=== PATIENT | female | born 1965 | race Caucasian/White ===

== ENCOUNTER 2016-07-07 02:00 | Emergency (ER) | payer OTHER ==
[~2016-07-07] VITALS: Ht 154.9 cm; Wt 106.6 kg
[~2016-07-07 02:00] MED LIST: ALPR2TAB2 PO; ALPR2TAB5 PO; BUPR200T2 PO; BUPR75TA5 PO; CELE200C PO; CETI10TA22 PO; CLIN-44 PO; CYCL10TA2 PO; ERGO500012 PO; ESCI20TA PO; FURO20TA3 PO; FURO80TA72 PO; HYDR50TA PO; LAMO200T PO; LAMO25TA5 PO; LANS30CA PO; LANS30CA17 PO; LEVO500T8 PO; LORA2TAB PO; MUPI22OI2 TP; OMEG1CAP2 PO; OMEP40CA5 PO; OXYC10TA PO; OXYC60TA7 PO; PHEN37.5 PO; PRAZ2CAP2 PO; PRED20TA PO; PROAIR HFA8.5 GM INH; QUET300T PO; SPIR100T2 PO; SUMA100T4 PO; VIT1TABL2 PO
[2016-07-07] MEDS ORDERED: KETOROLAC TROMETHAMINE 60 MG/2 ML SYRINGE. IM ONE (03:30)
[2016-07-07] MEDS ORDERED: HYDROCODONE/APAP 5/325MG TABLET. PO ONE (03:30)
[2016-07-07] MEDS ORDERED: IBUP-1007 PO (04:28)
[2016-07-07] MEDS ORDERED: TRAM-29 PO (04:28)
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
[2016-07-07 04:44] VITALS: BP 127/81
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
== END 2016-07-07 04:44 | disposition home or self-care (01) ==
LOC: ER 02:00
DX: S09.90XA Unspecified injury of head, initial encounter (principal); M25.561 Pain in right knee; M25.512 Pain in left shoulder; Z88.0 Allergy status to penicillin; Z88.5 Allergy status to narcotic agent; Z88.8 Allergy status to other drugs, medicaments and biological substances; V49.88XA Car occupant (driver) (passenger) injured in other specified transport accidents, initial encounter; Y93.89 Activity, other specified; Y99.8 Other external cause status; Y92.488 Other paved roadways as the place of occurrence of the external cause
CPT/HCPCS: 73030; 73560; 96372; 99284; J1885

== ENCOUNTER → 2016-07-27 | Outpatient (CLI) | payer OTHER ==
[2016-07-07 04:44] VITALS: BP 127/81
[~2016-07-27] MED LIST changes: +IBUP-1007 PO; +TRAM-29 PO
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
== END | disposition home or self-care (01) ==
LOC: KCIC MRI 13:30
PROVIDERS: ATTEND Family Medicine
DX: M19.012 Primary osteoarthritis, left shoulder (principal); M75.102 Unspecified rotator cuff tear or rupture of left shoulder, not specified as traumatic
CPT/HCPCS: 73221

== ENCOUNTER 2016-12-12 17:32 | Emergency (ER) | payer OTHER ==
[~2016-12-12] VITALS: Ht 154.9 cm; Wt 113.4 kg
[~2016-12-12 17:32] MED LIST changes: -CLIN-44 PO; +CLIN150C14 PO; -ERGO500012 PO; +ERGO500027 PO; -ESCI20TA PO; +ESCITALOPRAM OX20 MG PO; -LANS30CA17 PO; +LANS30CA66 PO; -TRAM-29 PO; +TRAM-48 PO
[2016-12-12 18:05] LABS: BILIRUBIN,URINE NEGATIVE (NEG); GLUCOSE,URINE NEGATIVE (NEG); NITRITE,URINE NEGATIVE (NEG); PH,URINE 6.5; PROTEIN,URINE NEGATIVE (NEG-TRACE)
[2016-12-12 18:11] LABS: BACTERIA,URINE FEW /HPF (0-FEW); RBC,URINE 0 /HPF (0-2); SQUAMOUS EPITHELIAL CELL,UR MOD /LPF
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
[2016-12-12 19:30] VITALS: BP 95/70
--- NOTE | 2016-12-13 07:47 | RAD ---
Three-view study of the right knee Indications: Patient fell on concrete steps today. Right knee pain. Findings: No acute fracture or dislocation or osteolytic process is seen. ACL reconstruction is evident. There is moderate degenerative spurring of the medial tibiofemoral joint compartment with mild joint space narrowing. There is mild spurring of the lateral tibiofemoral joint compartment without significant joint space narrowing. There is moderate degenerative spurring of the patellofemoral joint compartment. Small right knee joint effusion is seen. There is a small radiopaque loose body within the intercondylar notch measuring 4 mm. IMPRESSION: Tricompartmental osteoarthritis of the right knee with a small right knee joint effusion. No acute fracture.
--- NOTE | 2016-12-13 07:50 | RAD ---
Two-view study of the thoracolumbar spine History: Fell on concrete steps today. Back pain. Comparison: March 20, 2012. Findings: Old compression fracture of T11 is seen which as been treated with a vertebroplasty. No acute compression fracture is evident. Lumbosacral fusion is evident. No discitis or osteolytic process is seen. Mild scoliotic curvature is seen. IMPRESSION: No acute compression fracture.
== END 2016-12-12 20:00 | disposition home or self-care (01) ==
LOC: ER 17:32
DX: S30.0XXA Contusion of lower back and pelvis, initial encounter (principal); M25.561 Pain in right knee; G89.29 Other chronic pain; E66.9 Obesity, unspecified; Z88.6 Allergy status to analgesic agent; Z88.5 Allergy status to narcotic agent; Z68.42 Body mass index [BMI] 45.0-49.9, adult; Z88.0 Allergy status to penicillin; Z79.891 Long term (current) use of opiate analgesic; Z90.49 Acquired absence of other specified parts of digestive tract; Z90.710 Acquired absence of both cervix and uterus; W10.9XXA Fall (on) (from) unspecified stairs and steps, initial encounter; Y93.89 Activity, other specified; Y92.89 Other specified places as the place of occurrence of the external cause; Y99.8 Other external cause status
CPT/HCPCS: 72080; 73562; 81001; 99285-25

== ENCOUNTER 2017-05-14 18:01 | Inpatient (IN) | payer OTHER ==
[~2017-05-14] VITALS: Ht 154.9 cm; Wt 128.8 kg
--- NOTE | 2017-05-14 18:34 | PHYS DOC ---
Past Medical History Past Medical History: Hepatitis, Other Additional Past Medical Histor: DJD, DID, CELLULITIS, CIRRHOSIS Past Surgical History: Appendectomy, Cholecystectomy, Hysterectomy, Other Additional Past Surgical Histo: hernia repair, metal plates arms/legs, BIOPSY Alcohol Use: None Drug Use: None Adult General Chief Complaint Chief Complaint: SHORTNESS OF BREATH HPI HPI Patient is a 52 year old female who presents with who complaints. She states she has dysuria for last 3-4 days. She also states she has a productive cough over the last 24-48 hours, she states she's had a nonproductive cough for the last 2 weeks. She states she has body aches, she states she had a fever yesterday 104. She is afebrile upon presentation here today. She states that she was given a Z-Sin that did not make her symptoms any better and then she is written for Bactrim which she has not had chance to fill as of yet. Review of Systems Review of Systems Constitutional: Positive for fever, Denies chills [] Eyes: Denies change in visual acuity, redness, or eye pain [] HENT: Denies nasal congestion or sore throat [] Respiratory: Positive for productive cough and shortness of breath [] Cardiovascular: No additional information not addressed in HPI [] GI: Denies abdominal pain, nausea, vomiting, bloody stools or diarrhea [] : Denies dysuria or hematuria [] Musculoskeletal: Denies back pain or joint pain [] Integument: Denies rash or skin lesions [] Neurologic: Denies headache, focal weakness or sensory changes [] Endocrine: Denies polyuria or polydipsia [] All other systems were reviewed and found to be within normal limits, except as documented in this note. Current Medications Current Medications Current Medications Medications (Trade) Dose Ordered Sig/[place] Start Time Stop Time Status Last Admin Dose Admin Albuterol/ Ipratropium (Duoneb) 3 ml 1X ONCE 05/14/17 20:30 05/14/17 20:31 DC 05/14/17 20:33 3 ML Azithromycin 250 ml @ 250 mls/hr 1X ONCE 05/14/17 20:30 05/14/17 21:29 05/14/17 20:18 250 MLS/HR Methylprednisolone Sodium Succinate (SOLU-Medrol 125MG VIAL) 125 mg 1X ONCE 05/14/17 20:30 05/14/17 20:31 DC 05/14/17 20:18 125 MG Morphine Sulfate 4 mg PRN Q15MIN PRN 05/14/17 20:00 05/15/17 19:59 05/14/17 20:04 4 MG Ondansetron HCl (Zofran) 4 mg 1X ONCE 05/14/17 20:00 05/14/17 20:01 DC 05/14/17 20:04 4 MG Potassium Chloride (Klor-Con) 40 meq 1X ONCE 05/14/17 21:00 05/14/17 21:01 Allergies Allergies Allergies Coded Allergies Type Severity Reaction Last Updated Verified Penicillins Allergy Intermediate 03/11/14 Yes aspirin Allergy Intermediate Rash 03/19/16 Yes codeine Allergy Intermediate 03/20/16 Yes Physical Exam Physical Exam Constitutional: Well developed, well nourished, no acute distress, non-toxic appearance. [] HENT: Normocephalic, atraumatic, bilateral external ears normal, oropharynx moist, no oral exudates, nose normal. [] Eyes: PERRLA, EOMI, conjunctiva normal, no discharge. [] Neck: Normal range of motion, no tenderness, supple, no stridor. [] Cardiovascular:Heart rate regular rhythm, no murmur [] Lungs & Thorax: Bilateral breath sounds course with mild expiratory wheezes bilaterally Abdomen: Bowel sounds normal, soft, no tenderness, no masses, no pulsatile masses. [] Skin: Warm, dry, no erythema, no rash. [] Back: No tenderness, no CVA tenderness. [] Extremities: No tenderness, no cyanosis, no clubbing, ROM intact, no edema. [] Neurologic: Alert and oriented X 3, normal motor function, normal sensory function, no focal deficits noted. [] Psychologic: Affect normal, judgement normal, mood normal. [] Current Patient Data Vital Signs Vital Signs Date Time Temp Pulse Resp B/P (MAP) Pulse Ox O2 Delivery O2 Flow Rate FiO2 05/14/17 20:34 96 Room Air 05/14/17 20:04 30 05/14/17 18:33 98.3 86 144/67 (92) 98.3 Lab Values Laboratory Tests Test 05/14/17 18:30 05/14/17 19:30 Urine Collection Type Unknown Urine Color Yellow Urine Clarity Cloudy Urine pH 5.5 Urine Specific [place] 1.025 Urine Protein Negative mg/dL (NEG-TRACE) Urine Glucose (UA) Negative mg/dL (NEG) Urine Ketones (Stick) Negative mg/dL (NEG) Urine Blood Negative (NEG) Urine Nitrite Negative (NEG) Urine Bilirubin Small (NEG) Urine Urobilinogen Dipstick 1.0 mg/dL (0.2 mg/dL) Urine Leukocyte Esterase Small (NEG) Urine RBC Occ /HPF (0-2) Urine WBC Occ /HPF (0-4) Urine Squamous Epithelial Cells None /LPF Urine Amorphous Sediment Present /HPF Urine Bacteria 0 /HPF (0-FEW) Urine Mucus Slight /LPF Urine Opiates Screen Pos (NEG) Urine Methadone Screen Neg (NEG) Urine Barbiturates Neg (NEG) Urine Phencyclidine Screen Neg (NEG) Urine Amphetamine/Methamphetamine Pos (NEG) Urine Benzodiazepines Screen Neg (NEG) Urine Cocaine Screen Neg (NEG) Urine Cannabinoids Screen Pos (NEG) Urine Ethyl Alcohol Neg (NEG) White Blood Count 5.4 x10^3/uL (4.0-11.0) Red Blood Count 4.03 x10^6/uL (3.50-5.40) Hemoglobin 12.0 g/dL (12.0-15.5) Hematocrit 36.0 % (36.0-47.0) Mean Corpuscular Volume 90 fL (79-100) Mean Corpuscular Hemoglobin 30 pg (25-35) Mean Corpuscular Hemoglobin Concent 33 g/dL (31-37) Red Cell Distribution Width 14.2 % (11.5-14.5) Platelet Count 273 x10^3/uL (140-400) Neutrophils (%) (Auto) 57 % (31-73) Lymphocytes (%) (Auto) 28 % (24-48) Monocytes (%) (Auto) 9 % (0-9) Eosinophils (%) (Auto) 5 % (0-3) H Basophils (%) (Auto) 1 % (0-3) Neutrophils # (Auto) 3.1 x10^3uL (1.8-7.7) Lymphocytes # (Auto) 1.5 x10^3/uL (1.0-4.8) Monocytes # (Auto) 0.5 x10^3/uL (0.0-1.1) Eosinophils # (Auto) 0.2 x10^3/uL (0.0-0.7) Basophils # (Auto) 0.0 x10^3/uL (0.0-0.2) Prothrombin Time 12.6 SEC (11.7-14.0) Prothrombin Time INR 1.0 (0.8-1.1) Sodium Level 141 mmol/L (136-145) Potassium Level 3.1 mmol/L (3.5-5.1) L Chloride Level 103 mmol/L (98-107) Carbon Dioxide Level 30 mmol/L (21-32) Anion Gap 8 (6-14) Blood Urea Nitrogen 14 mg/dL (7-20) Creatinine 0.9 mg/dL (0.6-1.0) Estimated GFR (Cockcroft-Gault) 65.5 Glucose Level 106 mg/dL (70-99) H Calcium Level 8.8 mg/dL (8.5-10.1) Magnesium Level 2.2 mg/dL (1.8-2.4) Total Bilirubin 0.3 mg/dL (0.2-1.0) Direct Bilirubin 0.1 mg/dL (0.0-0.2) Aspartate Amino Transferase (AST) 18 U/L (15-37) Alanine Aminotransferase (ALT) 23 U/L (14-59) Alkaline Phosphatase 117 U/L (46-116) H Creatine Kinase 54 U/L (26-192) Creatine Kinase MB (Mass) 13.9 ng/mL (0.0-3.6) H Creatine Kinase MB Relative Index 25.7 % (0-4) H Troponin I Quantitative < 0.017 ng/mL (0.000-0.055) PQ-Oot-Z-Type Natriuretic Peptide 31 pg/mL (0-124) Total Protein 7.6 g/dL (6.4-8.2) Albumin 3.8 g/dL (3.4-5.0) Lipase 64 U/L (73-393) L Laboratory Tests 05/14/17 19:30 Laboratory Tests 05/14/17 19:30 EKG EKG EKG shows sinus rhythm [address] elevations or T-wave inversions concerning, normal axis, QTC 465 ms, as interpreted by me. Radiology/Procedures Radiology/Procedures View chest x-ray did not show any focal consolidations, bony abnormality's, pneumothorax, chest x-ray similar one that was performed on March 18, 2016, as interpreted by me. Impressions: Subjective fevers Productive cough Body aches Course & Med Decision Making Course & Med Decision Making Pertinent Labs and Imaging studies reviewed. (See chart for details) Labs do not show any acute abnormalities addition to EKG chest x-ray. She is wheezing and received azithromycin, Solu-Medrol and breathing treatments. She will require admission secondary to her continued shortness of breath. Patient' s in stable condition this time being admitted to Dr. Barry, patient's agreeable plan. Interim orders have been written. Dragon Disclaimer Dragon Disclaimer This electronic medical record was generated, in whole or in part, using a voice recognition dictation system. Departure Departure Impression: Primary Impression: Obstructive chronic bronchitis with exacerbation Disposition: ADMITTED INPATIENT Admitting Physician: Catalino Barry Condition: STABLE Referrals: JOSE MELO MD (PCP) Additional Instructions: LAWRENCE BENNETT MD May 14, 2017 18:34
[2017-05-14 19:03] LABS: BILIRUBIN,URINE SMALL (NEG); GLUCOSE,URINE NEGATIVE (NEG); NITRITE,URINE NEGATIVE (NEG); PH,URINE 5.5; PROTEIN,URINE NEGATIVE (NEG-TRACE)
[2017-05-14 19:09] LABS: BARBITURATES NEG (NEG); BENZODIAZEPINES NEG (NEG); CANNABINOIDS POS (NEG); COCAINE NEG (NEG); METHADONE NEG (NEG); OPIATES POS (NEG); PHENCYCLIDINE NEG (NEG)
[2017-05-14 19:18] LABS: BACTERIA,URINE 0 /HPF (0-FEW); RBC,URINE OCC /HPF (0-2); WBC,URINE OCC /HPF (0-4)
[2017-05-14 19:45] LABS: BASO % 1 % (0-3); EOS % 5 % (0-3); LYMPH # 1.5 x10^3/uL (1.0-4.8); LYMPH % 28 % (24-48); MEAN CORPUSCULAR HEMOGLOBIN 30 pg (25-35); MEAN CORPUSCULAR HGB CONC 33 g/dL (31-37); MEAN CORPUSCULAR VOLUME 90 fL (79-100); MONO % 9 % (0-9); NEUT % 57 % (31-73); PLATELET COUNT 273 x10^3/uL (140-400); RED BLOOD COUNT 4.03 x10^6/uL (3.50-5.40); RED CELL DISTRIBUTION WIDTH 14.2 % (11.5-14.5); WHITE BLOOD COUNT 5.4 x10^3/uL (4.0-11.0)
[2017-05-14 19:55] LABS: PROTHROMBIN TIME PATIENT 12.6 SEC (11.7-14.0)
[2017-05-14] MEDS ORDERED: ONDANSETRON PF 4 MG/2 ML VIAL. IV ONE (20:00)
[2017-05-14] MEDS ORDERED: MORPHINE SULFATE 4 MG/ML DISP.SYRIN. IV/SQ PRN (20:00)
[2017-05-14 20:11] LABS: CALCIUM 8.8 mg/dL (8.5-10.1); CREATININE 0.9 mg/dL (0.6-1.0); GFR 65.5; POTASSIUM 3.1 mmol/L (3.5-5.1)
[2017-05-14 20:18] LABS: ALBUMIN 3.8 g/dL (3.4-5.0); DIRECT BILIRUBIN 0.1 mg/dL (0.0-0.2); MAGNESIUM 2.2 mg/dL (1.8-2.4); TOTAL BILIRUBIN 0.3 mg/dL (0.2-1.0); TOTAL PROTEIN 7.6 g/dL (6.4-8.2)
[2017-05-14 20:27] LABS: CKMB MASS 13.9 ng/mL (0.0-3.6)
[2017-05-14] MEDS ORDERED: AZITHRMYCN 500MG IVPB FOR OMNI 250 ML IV ONE (20:30)
[2017-05-14] MEDS ORDERED: IPRATRPIUM/ALBUTEROL 0.5/2.5MG 3 ML NEBU. NEB ONE (20:30)
[2017-05-14] MEDS ORDERED: methylPREDNISolone SOD SUCC PF 125 MG/2 ML VIAL. IV ONE (20:30)
[2017-05-14] MEDS ORDERED: POTASSIUM CHLORIDE 20 MEQ TABLET.ER. PO ONE (21:00)
[2017-05-14] MEDS ORDERED: ALBUTEROL SULFATE 2.5 MG/3 ML NEBU. NEB PRN (21:15)
[2017-05-14] MEDS ORDERED: MORPHINE SULFATE 4 MG/ML DISP.SYRIN. IV PRN (21:15)
[2017-05-14 23:45] VITALS: BP 126/75
[2017-05-15] MEDS ORDERED: MUPIROCIN 2 % NASAL OINTMENT 22GM TUBE. NS PRN
[2017-05-15] MEDS ORDERED: NON FORMULARY ITEM (Albuterol Sulfate (Proair Hfa Inhaler) 2 PUFF) INH PRN
[2017-05-15] MEDS ORDERED: TOPI50TA8 PO (00:53)
[2017-05-15] MEDS ORDERED: CYAN10005 PO (00:53)
[2017-05-15] MEDS ORDERED: CITA40TA5 PO (00:53)
[2017-05-15] MEDS ORDERED: LEVO25TA4 PO (00:53)
[2017-05-15] MEDS ORDERED: LAMO200T PO (00:53)
[2017-05-15] MEDS ORDERED: MUPI22OI2 TP (00:53)
[2017-05-15] MEDS: CITALOPRAM 20 MG TABLET. PO SCH ×2 (01:44→09:37)
[2017-05-15] MEDS: TOPIRAMATE 25 MG TABLET. PO SCH ×2 (01:44→09:38)
[2017-05-15] MEDS: lamoTRIgine 100 MG TABLET. PO SCH ×3 (01:44→20:46)
[2017-05-15] MEDS: LORazepam 1 MG TABLET PO SCH ×4 (01:45→20:48)
[2017-05-15] MEDS: CYCLOBENZAPRINE 10 MG TABLET. PO SCH ×4 (01:45→20:48)
[2017-05-15] MEDS: oxyCODONE ER 15 MG TAB.ER.12H PO SCH ×3 (01:45→20:48)
[2017-05-15] MEDS: QUEtiapine 300 MG TAB.ER.24H. PO SCH ×2 (01:45→20:46)
[2017-05-15 03:20] VITALS: BP 115/70
[2017-05-15] MEDS: LEVOTHYROXINE 25 MCG TABLET. PO SCH (05:57)
[2017-05-15 06:06] LABS: BASO % 0 % (0-3); EOS % 0 % (0-3); HEMATOCRIT 36.1 % (36.0-47.0); LYMPH # 0.7 x10^3/uL (1.0-4.8); LYMPH % 13 % (24-48); MEAN CORPUSCULAR HEMOGLOBIN 30 pg (25-35); MEAN CORPUSCULAR HGB CONC 33 g/dL (31-37); MEAN CORPUSCULAR VOLUME 90 fL (79-100); MONO % 2 % (0-9); NEUT % 85 % (31-73); PLATELET COUNT 275 x10^3/uL (140-400); RED CELL DISTRIBUTION WIDTH 13.8 % (11.5-14.5); WHITE BLOOD COUNT 4.9 x10^3/uL (4.0-11.0)
--- NOTE | 2017-05-15 06:14 | EKG ---
[facility] [address] [place] [id number] Test Date: 2017-05-14 Test Time: 18:55:31 Pat Name: LINDA ATKINS Department: Room: [facility] Gender: F [employer]: : 1965 Requested By: LAWRENCE BENNETT Order Number: [id number] Reading MD: Otto Coleman Measurements Intervals Ben Bolt Rate: 80 P: 36 MD: 154 QRS: 31 QRSD: 90 T: 30 QT: 400 QTc: 465 Interpretive Statements SINUS RHYTHM NORMAL ECG Electronically Signed On 05-20-2017 14:41:53 [employer] by Otto Coleman
[2017-05-15 06:20] LABS: CALCIUM 8.9 mg/dL (8.5-10.1); CREATININE 0.9 mg/dL (0.6-1.0); GFR 65.5; POTASSIUM 3.5 mmol/L (3.5-5.1)
[2017-05-15 07:16] VITALS: BP 120/47
--- NOTE | 2017-05-15 08:31 | RAD ---
Portable chest, 05/14/2017: History: Cough Comparison is made to a study from 03/18/2016. The patient is rotated to the right. The heart size and pulmonary vascularity are normal. No pulmonary infiltrate is seen. There is no evidence of pleural fluid. IMPRESSION: No acute cardiopulmonary abnormality is detected.
--- NOTE | 2017-05-15 08:37 | PDOC ---
GENERAL General: see dictated H&P. Problems: VITAL SIGNS Vital Signs: Vital Signs Date Time Temp Pulse Resp B/P (MAP) Pulse Ox O2 Delivery O2 Flow Rate FiO2 05/15/17 07:16 97.6 85 17 120/47 (71) 94 Room Air 97.6 I & O I & O Intake and Output 05/15/17 07:00 Intake Total 930 ml Balance 930 ml Intake Oral 680 ml IV Total 250 ml ALLERGIES Allergies: Allergies Coded Allergies Type Severity Reaction Last Updated Verified Penicillins Allergy Intermediate 03/11/14 Yes aspirin Allergy Intermediate Rash 03/19/16 Yes codeine Allergy Intermediate 03/20/16 Yes MEDS Medications: Current Medications Medications (Trade) Dose Ordered Sig/[place] Start Time Stop Time Status Last Admin Dose Admin Albuterol Sulfate (Ventolin Neb Soln) 2.5 mg PRN Q6HRS PRN 05/15/17 22:00 Albuterol/ Ipratropium (Duoneb) 3 ml 1X ONCE 05/14/17 20:30 05/14/17 20:31 DC 05/14/17 20:33 3 ML Azithromycin 250 ml @ 250 mls/hr 1X ONCE 05/14/17 20:30 05/15/17 01:08 DC 05/14/17 20:18 250 MLS/HR Citalopram Hydrobromide (CeleXA) 40 mg DAILY 05/15/17 01:30 05/15/17 01:44 40 MG Cyanocobalamin (Vitamin B-12) 1,000 mcg WEEKLY 05/21/17 09:00 Cyclobenzaprine HCl (Flexeril) 10 mg TID 05/15/17 02:00 05/15/17 01:45 10 MG Ergocalciferol (Vitamin D2) 50,000 unit QTU 05/21/17 16:00 Lamotrigine (LaMICtal) 200 mg BID 05/15/17 01:15 05/15/17 01:44 200 MG Levothyroxine Sodium (Synthroid) 25 mcg DAILY07 05/15/17 07:00 05/15/17 05:57 25 MCG Lorazepam (Ativan) 2 mg TID 05/15/17 02:00 05/15/17 01:45 2 MG Methylprednisolone Sodium Succinate (SOLU-Medrol 125MG VIAL) 125 mg 1X ONCE 05/14/17 20:30 05/14/17 20:31 DC 05/14/17 20:18 125 MG Morphine Sulfate 4 mg PRN Q4HRS PRN 05/14/17 21:15 05/15/17 21:14 05/15/17 05:57 4 MG Mupirocin (Bactroban) 1 eri TID PRN PRN 05/15/17 00:00 Non-Formulary Medication 200 mg BID 05/15/17 09:00 UNV Ondansetron HCl (Zofran) 4 mg 1X ONCE 05/14/17 20:00 05/14/17 20:01 DC 05/14/17 20:04 4 MG Oxycodone HCl (OxyCONTIN) 60 mg Q12HR 05/15/17 02:00 05/15/17 01:45 60 MG Oxycodone HCl (Roxicodone) 20 mg QID 05/15/17 09:00 Pantoprazole Sodium (Protonix) 40 mg DAILYAC 05/15/17 07:30 Potassium Chloride (Klor-Con) 40 meq 1X ONCE 05/14/17 21:00 05/14/17 21:01 DC Quetiapine Fumarate (SEROquel XR) 300 mg QHS 05/15/17 02:00 05/15/17 01:45 300 MG Sumatriptan Succinate (Imitrex) 100 mg PRN DAILY PRN 05/15/17 00:00 Topiramate (Topamax) 50 mg DAILY 05/15/17 01:15 05/15/17 01:44 50 MG LAB Lab: Laboratory Tests Test 05/14/17 18:30 05/14/17 19:30 05/15/17 04:00 Urine Collection Type Unknown Urine Color Yellow Urine Clarity Cloudy Urine pH 5.5 Urine Specific [place] 1.025 Urine Protein Negative mg/dL (NEG-TRACE) Urine Glucose (UA) Negative mg/dL (NEG) Urine Ketones (Stick) Negative mg/dL (NEG) Urine Blood Negative (NEG) Urine Nitrite Negative (NEG) Urine Bilirubin Small (NEG) Urine Urobilinogen Dipstick 1.0 mg/dL (0.2 mg/dL) Urine Leukocyte Esterase Small (NEG) Urine RBC Occ /HPF (0-2) Urine WBC Occ /HPF (0-4) Urine Squamous Epithelial Cells None /LPF Urine Amorphous Sediment Present /HPF Urine Bacteria 0 /HPF (0-FEW) Urine Mucus Slight /LPF Urine Opiates Screen Pos (NEG) Urine Methadone Screen Neg (NEG) Urine Barbiturates Neg (NEG) Urine Phencyclidine Screen Neg (NEG) Urine Amphetamine/Methamphetamine Pos (NEG) Urine Benzodiazepines Screen Neg (NEG) Urine Cocaine Screen Neg (NEG) Urine Cannabinoids Screen Pos (NEG) Urine Ethyl Alcohol Neg (NEG) White Blood Count 5.4 x10^3/uL (4.0-11.0) 4.9 x10^3/uL (4.0-11.0) Red Blood Count 4.03 x10^6/uL (3.50-5.40) 4.00 x10^6/uL (3.50-5.40) Hemoglobin 12.0 g/dL (12.0-15.5) 12.0 g/dL (12.0-15.5) Hematocrit 36.0 % (36.0-47.0) 36.1 % (36.0-47.0) Mean Corpuscular Volume 90 fL (79-100) 90 fL (79-100) Mean Corpuscular Hemoglobin 30 pg (25-35) 30 pg (25-35) Mean Corpuscular Hemoglobin Concent 33 g/dL (31-37) 33 g/dL (31-37) Red Cell Distribution Width 14.2 % (11.5-14.5) 13.8 % (11.5-14.5) Platelet Count 273 x10^3/uL (140-400) 275 x10^3/uL (140-400) Neutrophils (%) (Auto) 57 % (31-73) 85 % (31-73) Lymphocytes (%) (Auto) 28 % (24-48) 13 % (24-48) Monocytes (%) (Auto) 9 % (0-9) 2 % (0-9) Eosinophils (%) (Auto) 5 % (0-3) 0 % (0-3) Basophils (%) (Auto) 1 % (0-3) 0 % (0-3) Neutrophils # (Auto) 3.1 x10^3uL (1.8-7.7) 4.2 x10^3uL (1.8-7.7) Lymphocytes # (Auto) 1.5 x10^3/uL (1.0-4.8) 0.7 x10^3/uL (1.0-4.8) Monocytes # (Auto) 0.5 x10^3/uL (0.0-1.1) 0.1 x10^3/uL (0.0-1.1) Eosinophils # (Auto) 0.2 x10^3/uL (0.0-0.7) 0.0 x10^3/uL (0.0-0.7) Basophils # (Auto) 0.0 x10^3/uL (0.0-0.2) 0.0 x10^3/uL (0.0-0.2) Prothrombin Time 12.6 SEC (11.7-14.0) Prothromb Time International Ratio 1.0 (0.8-1.1) Sodium Level 141 mmol/L (136-145) 142 mmol/L (136-145) Potassium Level 3.1 mmol/L (3.5-5.1) 3.5 mmol/L (3.5-5.1) Chloride Level 103 mmol/L (98-107) 107 mmol/L (98-107) Carbon Dioxide Level 30 mmol/L (21-32) 27 mmol/L (21-32) Anion Gap 8 (6-14) 8 (6-14) Blood Urea Nitrogen 14 mg/dL (7-20) 14 mg/dL (7-20) Creatinine 0.9 mg/dL (0.6-1.0) 0.9 mg/dL (0.6-1.0) Estimated GFR (Cockcroft-Gault) 65.5 65.5 Glucose Level 106 mg/dL (70-99) 160 mg/dL (70-99) Calcium Level 8.8 mg/dL (8.5-10.1) 8.9 mg/dL (8.5-10.1) Magnesium Level 2.2 mg/dL (1.8-2.4) Total Bilirubin 0.3 mg/dL (0.2-1.0) Direct Bilirubin 0.1 mg/dL (0.0-0.2) Aspartate Amino Transf (AST/SGOT) 18 U/L (15-37) Alanine Aminotransferase (ALT/SGPT) 23 U/L (14-59) Alkaline Phosphatase 117 U/L (46-116) Creatine Kinase 54 U/L (26-192) Creatine Kinase MB (Mass) 13.9 ng/mL (0.0-3.6) Creatine Kinase MB Relative Index 25.7 % (0-4) Troponin I Quantitative < 0.017 ng/mL (0.000-0.055) < 0.017 ng/mL (0.000-0.055) AR-Fbl-X-Type Natriuretic Peptide 31 pg/mL (0-124) Total Protein 7.6 g/dL (6.4-8.2) Albumin 3.8 g/dL (3.4-5.0) Lipase 64 U/L (73-393) GENIE SHAW MD May 15, 2017 08:37
[2017-05-15] MEDS ORDERED: NON FORMULARY ITEM (Lamotrigine 200 MG) PO SCH (09:00)
[2017-05-15] MEDS ORDERED: NON FORMULARY ITEM (Phentermine Hcl 37.5 MG) PO SCH (09:00)
[2017-05-15] MEDS: PANTOPRAZOLE 40 MG TABLET.DR. PO SCH (09:37)
[2017-05-15] MEDS: oxyCODONE IR 5 MG TABLET PO SCH ×4 (09:40→20:47)
[2017-05-15] MEDS ORDERED: IV NORMAL SALINE 1000ML BAG 1,000 ML IV ONE (10:00)
--- NOTE | 2017-05-15 10:31 | HP ---
ADMIT DATE: CHIEF COMPLAINT AND HISTORY OF PRESENT ILLNESS: This 52-year-old white female is known to me from prior hospitalization. The patient presents with 2 weeks shortness of breath and productive cough. She has body aches and chills, reports home fever, had been started on Z-Sin, which did not improve her symptoms by Dr. Nguyen and was written prescription for Bactrim, which she never has filled as of late. She was felt to have an exacerbation of COPD in the Emergency Room and admitted for the same. PAST MEDICAL HISTORY: Remarkable for hepatitis, degenerative joint disease, history of cellulitis, cirrhosis, bipolar disease. PAST SURGICAL HISTORY: She has had a prior appendectomy, cholecystectomy, hysterectomy, hernia repair. MEDICATIONS: Brought with the patient, listed on the computer and have been addressed. ALLERGIES: SHE IS ALLERGIC TO PENICILLIN, CODEINE, AND ASPIRIN. SOCIAL HISTORY: She is nonsmoker, nondrinker. However, currently abuses drugs; according to her, not; but amphetamines and cannabinoids on initial drug screen and are obviously not part of her home medications. FAMILY HISTORY: Noncontributory. REVIEW OF SYSTEMS: As mentioned above. PHYSICAL EXAMINATION: GENERAL: She is a well-developed, well-nourished, obese white female, currently comfortable in bed. VITAL SIGNS: Stable. She is afebrile. O2 sats are good on room air. HEAD, EYES, EARS, NOSE, AND THROAT: Unremarkable. NECK: Supple without adenopathy or thyromegaly. CHEST: Reveals mild expiratory wheezes bilaterally. HEART: Regular rate and rhythm without S3, S4 or murmur. ABDOMEN: Soft, nontender, without hepatosplenomegaly or masses. EXTREMITIES: Without cyanosis, clubbing, edema. NEUROLOGIC: She is intact. IMPRESSION: 1. Exacerbation of chronic obstructive pulmonary disease with likely bronchitis. 2. Other problems listed above. PLAN: The patient has been admitted. IV fluids. Pulmonary toilet, IV antibiotics, IV steroids will be ongoing and the patient will be monitored, managed and treated appropriately. GENIE SHAW MD DR: BOOKER/kadeem JOB#: [id number] / [id number]
[2017-05-15 10:38] VITALS: BP 123/64
[2017-05-15] MEDS: methylPREDNISolone SOD SUCC PF 40 MG/ML VIAL. IV SCH ×3 (11:03→20:48)
[2017-05-15 14:42] VITALS: BP 133/78
[2017-05-15 19:10] VITALS: BP 141/81
[2017-05-15] MEDS ORDERED: ALBUTEROL SULFATE 2.5 MG/3 ML NEBU. NEB PRN (22:00)
[2017-05-15 23:05] VITALS: BP 119/63
[2017-05-16] MEDS: SUMAtriptan SUCCINATE 100 MG TABLET PO PRN (01:16)
[2017-05-16 03:51] VITALS: BP 171/80
[2017-05-16] MEDS: LEVOTHYROXINE 25 MCG TABLET. PO SCH (05:49)
[2017-05-16] MEDS: methylPREDNISolone SOD SUCC PF 40 MG/ML VIAL. IV SCH ×3 (05:49→21:15)
[2017-05-16 07:33] VITALS: BP 135/63
--- NOTE | 2017-05-16 08:30 | PDOC ---
GENERAL General: vss and afebrile. sleeping soundly. still with diffuse expiratory wheezing and will ask for pulmonary opinion. heart regular and abdomen benign. otherwise same. Problems: VITAL SIGNS Vital Signs: Vital Signs Date Time Temp Pulse Resp B/P (MAP) Pulse Ox O2 Delivery O2 Flow Rate FiO2 05/16/17 07:33 98.6 63 18 135/63 (87) 97 Room Air 98.6 I & O I & O Intake and Output 05/16/17 07:00 Intake Total 3150 ml Balance 3150 ml Intake Oral 3150 ml # Voids 7 ALLERGIES Allergies: Allergies Coded Allergies Type Severity Reaction Last Updated Verified Penicillins Allergy Intermediate 03/11/14 Yes aspirin Allergy Intermediate Rash 03/19/16 Yes codeine Allergy Intermediate 03/20/16 Yes MEDS Medications: Current Medications Medications (Trade) Dose Ordered Sig/[place] Start Time Stop Time Status Last Admin Dose Admin Albuterol Sulfate (Ventolin Neb Soln) 2.5 mg PRN Q6HRS PRN 05/15/17 22:00 Albuterol/ Ipratropium (Duoneb) 3 ml 1X ONCE 05/14/17 20:30 05/14/17 20:31 DC 05/14/17 20:33 3 ML Azithromycin 250 ml @ 250 mls/hr 1X ONCE 05/14/17 20:30 05/15/17 01:08 DC 05/14/17 20:18 250 MLS/HR Citalopram Hydrobromide (CeleXA) 40 mg DAILY 05/15/17 01:30 05/15/17 09:37 40 MG Cyanocobalamin (Vitamin B-12) 1,000 mcg WEEKLY 05/21/17 09:00 Cyclobenzaprine HCl (Flexeril) 10 mg TID 05/15/17 02:00 05/15/17 20:48 10 MG Ergocalciferol (Vitamin D2) 50,000 unit QTU 05/21/17 16:00 Lamotrigine (LaMICtal) 200 mg BID 05/15/17 01:15 05/15/17 20:46 200 MG Levofloxacin/ Dextrose 100 ml @ 100 mls/hr Q24H 05/15/17 10:00 05/15/17 11:02 100 MLS/HR Levothyroxine Sodium (Synthroid) 25 mcg DAILY07 05/15/17 07:00 05/16/17 05:49 25 MCG Lorazepam (Ativan) 2 mg TID 05/15/17 02:00 05/15/17 20:48 2 MG Methylprednisolone Sodium Succinate (SOLU-Medrol 40MG VIAL) 40 mg Q8HRS 05/15/17 10:00 05/16/17 05:49 40 MG Methylprednisolone Sodium Succinate (SOLU-Medrol 125MG VIAL) 125 mg 1X ONCE 05/14/17 20:30 05/14/17 20:31 DC 05/14/17 20:18 125 MG Morphine Sulfate 4 mg PRN Q4HRS PRN 05/14/17 21:15 05/15/17 21:14 DC 05/15/17 05:57 4 MG Mupirocin (Bactroban) 1 eri TID PRN PRN 05/15/17 00:00 Non-Formulary Medication 200 mg BID 05/15/17 09:00 UNV Ondansetron HCl (Zofran) 4 mg 1X ONCE 05/14/17 20:00 05/14/17 20:01 DC 05/14/17 20:04 4 MG Oxycodone HCl (OxyCONTIN) 60 mg Q12HR 05/15/17 02:00 05/15/17 20:48 60 MG Oxycodone HCl (Roxicodone) 20 mg QID 05/15/17 09:00 05/15/17 20:47 20 MG Pantoprazole Sodium (Protonix) 40 mg DAILYAC 05/15/17 07:30 05/15/17 09:37 40 MG Potassium Chloride (Klor-Con) 40 meq 1X ONCE 05/14/17 21:00 05/14/17 21:01 DC Quetiapine Fumarate (SEROquel XR) 300 mg QHS 05/15/17 02:00 05/15/17 20:46 300 MG Sodium Chloride 1,000 ml @ 125 mls/hr 1X ONCE 05/15/17 10:00 05/15/17 17:59 DC 05/15/17 09:36 125 MLS/HR Sumatriptan Succinate (Imitrex) 100 mg PRN DAILY PRN 05/15/17 00:00 05/16/17 01:16 100 MG Topiramate (Topamax) 50 mg DAILY 05/15/17 01:15 05/15/17 09:38 50 MG LAB Lab: Laboratory Tests Test 05/15/17 09:08 Troponin I Quantitative < 0.017 ng/mL (0.000-0.055) GENIE SHAW MD May 16, 2017 08:30
[2017-05-16] MEDS: oxyCODONE ER 15 MG TAB.ER.12H PO SCH ×2 (09:29→15:43)
[2017-05-16] MEDS: TOPIRAMATE 25 MG TABLET. PO SCH (09:29)
[2017-05-16] MEDS: oxyCODONE IR 5 MG TABLET PO SCH ×4 (09:29→20:37)
[2017-05-16] MEDS: CITALOPRAM 20 MG TABLET. PO SCH (09:30)
[2017-05-16] MEDS: LORazepam 1 MG TABLET PO SCH ×3 (09:30→20:37)
[2017-05-16] MEDS: lamoTRIgine 100 MG TABLET. PO SCH ×2 (09:30→20:36)
[2017-05-16] MEDS: PANTOPRAZOLE 40 MG TABLET.DR. PO SCH (09:30)
[2017-05-16] MEDS: CYCLOBENZAPRINE 10 MG TABLET. PO SCH ×3 (09:30→20:36)
--- NOTE | 2017-05-16 09:33 | CONS ---
DATE OF CONSULTATION: ATTENDING PHYSICIAN: Dr. Coulter REASON FOR CONSULTATION: Dyspnea. HISTORY OF PRESENT ILLNESS: The patient is a 52-year-old female with underlying COPD. She has smoked all her life. She presented with 2-week history of shortness of breath with some wheezing along with a productive cough. She has some body aches and chills. Reportedly had some fever on and off for the last week. The patient did receive flu vaccine. She had failed outpatient Bactrim, in fact she never filled the prescription. The patient was seen in the Emergency Room and a chest x-ray was performed. It was reported as negative. To my review, there appears to be opacity at the lateral border of the cardiac silhouette which could be pericardial fat. I have been asked to see her for further evaluation. PAST MEDICAL HISTORY: Significant for COPD, unknown FEV1, history of hepatitis, DJD, cirrhosis, and bipolar disease. PAST SURGICAL HISTORY: Appendectomy, cholecystectomy, hysterectomy and hernia repair. MEDICATIONS: All reviewed as listed in the MRAD including IV steroids, antibiotic Levaquin and p.r.n. nebs. REVIEW OF SYSTEMS: Twelve-point system obtained. Pertinent positives discussed in history of present illness, otherwise noncontributory. All systems that were negative were reviewed as well. SOCIAL HISTORY: Smoker all her life. She says she no longer smokes cigarettes. She has history of drug abuse as well. FAMILY HISTORY: Noncontributory to lungs. PHYSICAL EXAMINATION: GENERAL: She is awake, following commands. VITAL SIGNS: Reviewed, stable today. Afebrile. Blood pressure 135/63, pulse ox 97% on room air. EYES: Sclerae nonicteric. NECK: Supple. LUNGS: With faint anterior expiratory wheezes. CARDIOVASCULAR: Regular rate and rhythm. ABDOMEN: Soft, nontender. EXTREMITIES: With no pitting edema. LABORATORY DATA: Reviewed. Urine drug screen was positive for methamphetamine and marijuana along with opiates. Chemistries with a BUN of 14, creatinine 0.9. Her CK was 54. White cell count is 4.9, hemoglobin 12.0 and platelets are 275. IMPRESSION: 1. Dyspnea secondary to acute exacerbation of chronic obstructive pulmonary disease and also probably contributed by substance abuse. 2. Acute purulent bronchitis. No definite consolidation seen on the chest x-ray. 3. Abnormal chest x-ray with possible pericardial fat at the lateral border of the cardiac silhouette. We will obtain noncontrast CT chest. 4. Underlying morbid obesity. Insurance will not cover a sleep study. 5. History of cirrhosis. 6. Bipolar disorder. RECOMMENDATIONS: 1. Continue with present IV steroids. 2. Continue with antibiotics. 3. Sputum for C and S. 4. Add scheduled DuoNeb and p.r.n. albuterol. 5. The patient was counseled regarding substance abuse cessation. 6. Obtain noncontrast CT chest. CORI RASMUSSEN MD DR: JAKUB/kadeem JOB#: [id number] / [id number] JASON
[2017-05-16 10:31] LABS: OBC FLU VALID
--- NOTE | 2017-05-16 10:40 | RAD ---
CT chest without contrast Indication: Shortness of breath. Pulmonary hypertension versus pericardial fat. Technique: CT chest without IV contrast with multi planar reformats. Comparison: Previous study from 2014. Findings: Limited study due to lack of IV contrast. Neck base is clear. No axillary, mediastinal or hilar adenopathy. Heart is normal in size. No pericardial or pleural effusion. Prominent fat is noted in the right cardiophrenic recess. There is mild right pericardial subsegmental atelectasis. The main pulmonary artery is not significantly dilated. There is thickening of the right posterolateral pleura. Minimal scattered patchy opacities are seen in the right middle lobe and right upper lobe, nonspecific may be secondary to subsegmental atelectasis. Visualized noncontrast appearance of the liver, spleen, adrenals, visualized pancreas and kidneys are within normal limits. Status post cholecystectomy. Kyphoplasty changes in the T11 vertebral body. No suspicious bony lesion. Impression: 1. Main pulmonary artery is not dilated to suggest pulmonary arterial hypertension. 2. Right cardiophrenic fat pad and mild pericardiac segmental atelectasis of the adjacent lung. PQRS Compliance Statement: One or more of the following individualized dose reduction techniques were utilized for this examination: 1. Automated exposure control 2. Adjustment of the mA and/or kV according to patient size 3. Use of iterative reconstruction technique
[2017-05-16 11:40] VITALS: BP 145/76
[2017-05-16] MEDS: IPRATRPIUM/ALBUTEROL 0.5/2.5MG 3 ML NEBU. NEB SCH ×3 (11:48→19:20)
[2017-05-16 14:50] VITALS: BP 140/72
[2017-05-16 19:00] VITALS: BP 116/74
[2017-05-16] MEDS: QUEtiapine 300 MG TAB.ER.24H. PO SCH (20:36)
[2017-05-16 23:41] VITALS: BP 116/90
[2017-05-17 03:31] VITALS: BP 111/65
[2017-05-17] MEDS: methylPREDNISolone SOD SUCC PF 40 MG/ML VIAL. IV SCH ×3 (06:11→21:56)
[2017-05-17] MEDS: LEVOTHYROXINE 25 MCG TABLET. PO SCH (06:12)
[2017-05-17 07:00] VITALS: BP 145/68
[2017-05-17] MEDS: IPRATRPIUM/ALBUTEROL 0.5/2.5MG 3 ML NEBU. NEB SCH ×4 (07:36→19:35)
--- NOTE | 2017-05-17 08:25 | PDOC ---
GENERAL General: vss and afebrile. awake and alert this am. less wheezy this am but still harsh cough. heart regular and abdomen benign. ct chest without acute pathology. continue present therapy. Problems: VITAL SIGNS Vital Signs: Vital Signs Date Time Temp Pulse Resp B/P (MAP) Pulse Ox O2 Delivery O2 Flow Rate FiO2 05/17/17 07:36 96 Room Air 05/17/17 07:00 98.2 82 22 145/68 (93) 98.2 I & O I & O Intake and Output 05/17/17 07:00 Intake Total 2680 ml Balance 2680 ml Intake Oral 2680 ml # Voids 10 ALLERGIES Allergies: Allergies Coded Allergies Type Severity Reaction Last Updated Verified Penicillins Allergy Intermediate 03/11/14 Yes aspirin Allergy Intermediate Rash 03/19/16 Yes codeine Allergy Intermediate 03/20/16 Yes MEDS Medications: Current Medications Medications (Trade) Dose Ordered Sig/[place] Start Time Stop Time Status Last Admin Dose Admin Albuterol Sulfate (Ventolin Neb Soln) 2.5 mg PRN Q6HRS PRN 05/15/17 22:00 Albuterol/ Ipratropium (Duoneb) 3 ml RTQID 05/16/17 12:00 05/17/17 07:36 3 ML Azithromycin 250 ml @ 250 mls/hr 1X ONCE 05/14/17 20:30 05/15/17 01:08 DC 05/14/17 20:18 250 MLS/HR Citalopram Hydrobromide (CeleXA) 40 mg DAILY 05/15/17 01:30 05/16/17 09:30 40 MG Cyanocobalamin (Vitamin B-12) 1,000 mcg WEEKLY 05/21/17 09:00 Cyclobenzaprine HCl (Flexeril) 10 mg TID 05/15/17 02:00 05/16/17 20:36 10 MG Ergocalciferol (Vitamin D2) 50,000 unit QTU 05/21/17 16:00 Lamotrigine (LaMICtal) 200 mg BID 05/15/17 01:15 05/16/17 20:36 200 MG Levofloxacin (Levaquin) 500 mg DAILY06 05/17/17 06:00 05/17/17 06:12 500 MG Levofloxacin/ Dextrose 100 ml @ 100 mls/hr Q24H 05/15/17 10:00 05/16/17 16:06 DC 05/16/17 11:14 100 MLS/HR Levothyroxine Sodium (Synthroid) 25 mcg DAILY07 05/15/17 07:00 05/17/17 06:12 25 MCG Lorazepam (Ativan) 2 mg TID 05/15/17 02:00 05/16/17 20:37 2 MG Methylprednisolone Sodium Succinate (SOLU-Medrol 40MG VIAL) 40 mg Q8HRS 05/15/17 10:00 05/17/17 06:11 40 MG Methylprednisolone Sodium Succinate (SOLU-Medrol 125MG VIAL) 125 mg 1X ONCE 05/14/17 20:30 05/14/17 20:31 DC 05/14/17 20:18 125 MG Morphine Sulfate 4 mg PRN Q4HRS PRN 05/14/17 21:15 05/15/17 21:14 DC 05/15/17 05:57 4 MG Mupirocin (Bactroban) 1 eri TID PRN PRN 05/15/17 00:00 Non-Formulary Medication 200 mg BID 05/15/17 09:00 UNV Ondansetron HCl (Zofran) 4 mg 1X ONCE 05/14/17 20:00 05/14/17 20:01 DC 05/14/17 20:04 4 MG Oxycodone HCl (OxyCONTIN) 60 mg Q12HR 05/15/17 02:00 05/16/17 15:43 60 MG Oxycodone HCl (Roxicodone) 20 mg QID 05/15/17 09:00 05/16/17 20:37 20 MG Pantoprazole Sodium (Protonix) 40 mg DAILYAC 05/15/17 07:30 05/16/17 09:30 40 MG Potassium Chloride (Klor-Con) 40 meq 1X ONCE 05/14/17 21:00 05/14/17 21:01 DC Quetiapine Fumarate (SEROquel XR) 300 mg QHS 05/15/17 02:00 05/16/17 20:36 300 MG Sodium Chloride 1,000 ml @ 125 mls/hr 1X ONCE 05/15/17 10:00 05/15/17 17:59 DC 05/15/17 09:36 125 MLS/HR Sumatriptan Succinate (Imitrex) 100 mg PRN DAILY PRN 05/15/17 00:00 05/16/17 01:16 100 MG Topiramate (Topamax) 50 mg DAILY 05/15/17 01:15 05/16/17 09:29 50 MG LAB Lab: Laboratory Tests Test 05/16/17 09:40 Influenza Type A Antigen Negative (NEGATIVE) Influenza Type B Antigen Negative (NEGATIVE) GENIE SHAW MD May 17, 2017 08:24
[2017-05-17] MEDS: oxyCODONE ER 15 MG TAB.ER.12H PO SCH ×2 (09:19→21:09)
[2017-05-17] MEDS: oxyCODONE IR 5 MG TABLET PO SCH ×4 (09:19→21:08)
[2017-05-17] MEDS: CITALOPRAM 20 MG TABLET. PO SCH (09:20)
[2017-05-17] MEDS: LORazepam 1 MG TABLET PO SCH ×3 (09:20→21:09)
[2017-05-17] MEDS: lamoTRIgine 100 MG TABLET. PO SCH ×2 (09:20→21:09)
[2017-05-17] MEDS: PANTOPRAZOLE 40 MG TABLET.DR. PO SCH (09:20)
[2017-05-17] MEDS: CYCLOBENZAPRINE 10 MG TABLET. PO SCH ×3 (09:20→21:09)
[2017-05-17] MEDS: TOPIRAMATE 25 MG TABLET. PO SCH (09:21)
[2017-05-17 11:00] VITALS: BP 150/86
--- NOTE | 2017-05-17 12:04 | PDOC ---
PULMONARY PROGRESS NOTES Subjective LESS COUGH Vitals Vital Signs Date Time Temp Pulse Resp B/P (MAP) Pulse Ox O2 Delivery O2 Flow Rate FiO2 05/17/17 11:00 98.3 83 22 150/86 (107) 95 Room Air 98.3 ROS: No Chest Pain, No Abdominal Pain, No Increase Cough General: Alert, Oriented X4 Lungs: Clear Cardiovascular: S1, S2 Abdomen: Soft Extremities: No Edema Labs Laboratory Tests Test 05/16/17 09:40 Influenza Type A Antigen Negative (NEGATIVE) Influenza Type B Antigen Negative (NEGATIVE) Medications Active Scripts Medications Dose Route/Sig Max Daily Dose Days Date Category Levothyroxine Sodium 25 Mcg Tablet 1 Tab PO DAILY 05/15/17 Reported Mupirocin Ointment (Mupirocin) 22 Gm Oint...g. 1 Torri TP TID PRN PRN 05/15/17 Reported Topiramate 50 Mg Tablet 1 Tab PO DAILY 05/15/17 Reported Vitamin B-12 (Cyanocobalamin (Vitamin B-12)) 1,000 Mcg Tablet 1 Tab PO WEEKLY 05/15/17 Reported Lamotrigine 200 Mg Tablet 1 Tab PO BID 05/15/17 Reported Citalopram Hbr (Citalopram Hydrobromide) 40 Mg Tablet 1 Tab PO DAILY 05/15/17 Reported Sumatriptan Succinate 100 Mg Tablet 100 Mg PO ONCE PRN 01/10/16 Reported Quetiapine Fumarate 300 Mg Tablet 300 Mg PO HS 01/10/16 Reported Phentermine Hcl 37.5 Mg Tablet 37.5 Mg PO DAILY 01/10/16 Reported Oxycontin (Oxycodone HCl) 60 Mg Tab.er.12h 60 Mg PO BID 01/10/16 Reported Omeprazole 40 Mg Capsule.dr 40 Mg PO DAILY 01/10/16 Reported Lorazepam 2 Mg Tablet 2 Mg PO TID 01/10/16 Reported Lamotrigine 200 Mg Tablet 200 Mg PO BID 01/10/16 Reported Vitamin D2 (Ergocalciferol (Vitamin D2)) 50,000 Unit Capsule 50,000 Unit PO QTU 01/10/16 Reported Cyclobenzaprine Hcl 10 Mg Tablet 10 Mg PO TID 01/10/16 Reported Proair Hfa Inhaler (Albuterol Sulfate) 8.5 Gm Hfa.aer.ad 2 Puff INH PRN Q6HRS PRN 01/10/16 Reported Oxycodone Hcl 10 Mg Tablet 20 Mg PO QID 07/12/13 Reported Impression . 1. Dyspnea secondary to acute exacerbation of chronic obstructive pulmonary disease and also probably contributed by substance abuse. 2. Acute purulent bronchitis. No definite consolidation seen on the chest x-ray. 3. Abnormal chest x-ray with possible pericardial fat at the lateral border of the cardiac silhouette. CT chest with no acute abnormality 4. Underlying morbid obesity. Insurance will not cover a sleep study. 5. History of cirrhosis. 6. Bipolar disorder. Plan . 1. Taper IV steroids. 2. Continue with antibiotics. 3. Sputum for C and S. 4. DuoNeb and p.r.n. albuterol. 5. The patient was counseled regarding substance abuse cessation. 6. dc plans per PCP CORI RASMUSSEN MD May 17, 2017 12:04
[2017-05-17 15:00] VITALS: BP 130/74
[2017-05-17 19:00] VITALS: BP 129/69
[2017-05-17] MEDS ORDERED: LACTOBACILLUS RHAMNOSUS GG 1 CAPSULE. PO SCH (21:00)
[2017-05-17] MEDS: QUEtiapine 300 MG TAB.ER.24H. PO SCH (21:09)
[2017-05-17 23:53] VITALS: BP 125/76
[2017-05-18] MEDS: SUMAtriptan SUCCINATE 100 MG TABLET PO PRN (00:49)
[2017-05-18] MEDS ORDERED: oxyCODONE IR 5 MG TABLET PO ONE (01:00)
[2017-05-18] MEDS: LEVOTHYROXINE 25 MCG TABLET. PO SCH (06:08)
[2017-05-18] MEDS: methylPREDNISolone SOD SUCC PF 40 MG/ML VIAL. IV SCH (06:09)
[2017-05-18 07:10] VITALS: BP 139/67
[2017-05-18] MEDS: IPRATRPIUM/ALBUTEROL 0.5/2.5MG 3 ML NEBU. NEB SCH (08:10)
--- NOTE | 2017-05-18 09:17 | PDOC ---
PULMONARY PROGRESS NOTES Subjective LESS COUGH Vitals Vital Signs Date Time Temp Pulse Resp B/P (MAP) Pulse Ox O2 Delivery O2 Flow Rate FiO2 05/18/17 08:12 96 Room Air 05/18/17 07:10 97.7 75 18 139/67 (91) 97.7 ROS: No Chest Pain, No Abdominal Pain, No Increase Cough General: Alert, Oriented X4 Lungs: Clear Cardiovascular: S1, S2 Abdomen: Soft Extremities: No Edema Labs Laboratory Tests Test 05/16/17 09:40 Influenza Type A Antigen Negative (NEGATIVE) Influenza Type B Antigen Negative (NEGATIVE) Medications Active Scripts Medications Dose Route/Sig Max Daily Dose Days Date Category Levothyroxine Sodium 25 Mcg Tablet 1 Tab PO DAILY 05/15/17 Reported Mupirocin Ointment (Mupirocin) 22 Gm Oint...g. 1 Torri TP TID PRN PRN 05/15/17 Reported Topiramate 50 Mg Tablet 1 Tab PO DAILY 05/15/17 Reported Vitamin B-12 (Cyanocobalamin (Vitamin B-12)) 1,000 Mcg Tablet 1 Tab PO WEEKLY 05/15/17 Reported Lamotrigine 200 Mg Tablet 1 Tab PO BID 05/15/17 Reported Citalopram Hbr (Citalopram Hydrobromide) 40 Mg Tablet 1 Tab PO DAILY 05/15/17 Reported Sumatriptan Succinate 100 Mg Tablet 100 Mg PO ONCE PRN 01/10/16 Reported Quetiapine Fumarate 300 Mg Tablet 300 Mg PO HS 01/10/16 Reported Phentermine Hcl 37.5 Mg Tablet 37.5 Mg PO DAILY 01/10/16 Reported Oxycontin (Oxycodone HCl) 60 Mg Tab.er.12h 60 Mg PO BID 01/10/16 Reported Omeprazole 40 Mg Capsule.dr 40 Mg PO DAILY 01/10/16 Reported Lorazepam 2 Mg Tablet 2 Mg PO TID 01/10/16 Reported Lamotrigine 200 Mg Tablet 200 Mg PO BID 01/10/16 Reported Vitamin D2 (Ergocalciferol (Vitamin D2)) 50,000 Unit Capsule 50,000 Unit PO QTU 01/10/16 Reported Cyclobenzaprine Hcl 10 Mg Tablet 10 Mg PO TID 01/10/16 Reported Proair Hfa Inhaler (Albuterol Sulfate) 8.5 Gm Hfa.aer.ad 2 Puff INH PRN Q6HRS PRN 01/10/16 Reported Oxycodone Hcl 10 Mg Tablet 20 Mg PO QID 07/12/13 Reported Impression . 1. Dyspnea secondary to acute exacerbation of chronic obstructive pulmonary disease and also probably contributed by substance abuse. 2. Acute purulent bronchitis. No definite consolidation seen on the chest x-ray. 3. Abnormal chest x-ray with possible pericardial fat at the lateral border of the cardiac silhouette. CT chest with no acute abnormality 4. Underlying morbid obesity. Insurance will not cover a sleep study. 5. History of cirrhosis. 6. Bipolar disorder. Plan . 1. Taper steroids. 2. Continue with antibiotics. 3. Sputum for C and S. 4. DuoNeb and p.r.n. albuterol. 5. The patient was counseled regarding substance abuse cessation. 6. dc today CORI RASMUSSEN MD May 18, 2017 09:17
[2017-05-21] MEDS ORDERED: CYANOCOBALAMIN (VITAMIN B-12) 1,000 MCG TABLET. PO SCH (09:00)
[2017-05-21] MEDS ORDERED: ERGOCALCIFEROL (VITAMIN D2) 50,000 UNIT CAPSULE. PO SCH (16:00)
== END 2017-05-18 09:24 | disposition home or self-care (01) | DRG 202 ==
LOC: ER 18:01 → 6 SOUTH 21:00
PROVIDERS: ADMIT Family Medicine; ATTEND Family Medicine
DX: J20.9 Acute bronchitis, unspecified (principal); J44.0 Chronic obstructive pulmonary disease with (acute) lower respiratory infection; R65.10 Systemic inflammatory response syndrome (SIRS) of non-infectious origin without acute organ dysfunction; E66.01 Morbid (severe) obesity due to excess calories; K74.60 Unspecified cirrhosis of liver; Z68.43 Body mass index [BMI] 50.0-59.9, adult; J44.1 Chronic obstructive pulmonary disease with (acute) exacerbation; F17.200 Nicotine dependence, unspecified, uncomplicated; F31.9 Bipolar disorder, unspecified; Z90.710 Acquired absence of both cervix and uterus; Z90.49 Acquired absence of other specified parts of digestive tract; M19.90 Unspecified osteoarthritis, unspecified site; Z88.0 Allergy status to penicillin; Z88.8 Allergy status to other drugs, medicaments and biological substances
CPT/HCPCS: 36415; 71010; 71250; 80048; 80076; 80307; 81001; 82553; 83690; 83735; 83880; 84484; 85025; 85610; 87086; 87804; 93005; 94250; 94640; 94760; 96361; 96374; 96375; J0456; J1956; J2270; J2405; J2920; J2930; J7030; J7620; 99285-25; G0479

== ENCOUNTER 2017-05-28 00:32 | Emergency (ER) | payer OTHER ==
[~2017-05-28] VITALS: Ht 154.9 cm; Wt 128.8 kg
[~2017-05-28 00:32] MED LIST changes: +CITA40TA5 PO; +CYAN10005 PO; -LAMO200T PO; +LAMO200T2 PO; +LEVO25TA4 PO; +TOPI50TA8 PO
[2017-05-28 00:46] VITALS: BP 125/66
--- NOTE | 2017-05-28 00:54 | PHYS DOC ---
Past Medical History Past Medical History: Hepatitis, Other Additional Past Medical Histor: DJD, DID, CELLULITIS, CIRRHOSIS Past Surgical History: Appendectomy, Cholecystectomy, Hysterectomy, Other Additional Past Surgical Histo: hernia repair, metal plates arms/legs, BIOPSY Alcohol Use: None Drug Use: None Adult General Chief Complaint Chief Complaint: MULTIPLE COMPLAINTS HPI HPI Patient is a 52 year old female who presents with who complains. She is complaining about bilateral lower extremities being red and painful. She is also complaining of being out of her short-acting oxycodone. She originally said she was out of all of her pain meds but then stated at the end that she had her 60 mg OxyContin and has it for another 2 weeks. She did just see Dr. Eldridge 4 days ago so not quite sure why she didn't get it refilled at that time. She denies any fevers chills nausea or vomiting. She is just complaining of her chronic pain being worse. Review of Systems Review of Systems Constitutional: Denies fever or chills [] Eyes: Denies change in visual acuity, redness, or eye pain [] HENT: Denies nasal congestion or sore throat [] Respiratory: Denies cough or shortness of breath [] Cardiovascular: No additional information not addressed in HPI [] GI: Denies abdominal pain, nausea, vomiting, bloody stools or diarrhea [] : Denies dysuria or hematuria [] Musculoskeletal: Denies back pain or joint pain [] Integument: Denies rash, positive for bilateral lower extremity erythema Neurologic: Denies headache, focal weakness or sensory changes [] Endocrine: Denies polyuria or polydipsia [] All other systems were reviewed and found to be within normal limits, except as documented in this note. Current Medications Current Medications Current Medications Medications (Trade) Dose Ordered Sig/[place] Start Time Stop Time Status Last Admin Dose Admin Clindamycin HCl (Cleocin) 300 mg 1X ONCE 05/28/17 02:00 05/28/17 02:00 DC 05/28/17 01:47 300 MG Oxycodone HCl (Roxicodone) 20 mg 1X ONCE 05/28/17 02:00 05/28/17 02:00 DC Allergies Allergies Allergies Coded Allergies Type Severity Reaction Last Updated Verified Penicillins Allergy Intermediate 03/11/14 Yes aspirin Allergy Intermediate Rash 03/19/16 Yes codeine Allergy Intermediate 03/20/16 Yes Physical Exam Physical Exam Constitutional: Well developed, well nourished, no acute distress, non-toxic appearance. [] HENT: Normocephalic, atraumatic, bilateral external ears normal, oropharynx moist, no oral exudates, nose normal. [] Eyes: PERRLA, EOMI, conjunctiva normal, no discharge. [] Neck: Normal range of motion, no tenderness, supple, no stridor. [] Cardiovascular:Heart rate regular rhythm, no murmur [] Lungs & Thorax: Bilateral breath sounds clear to auscultation [] Abdomen: Bowel sounds normal, soft, no tenderness, no masses, no pulsatile masses. [] Skin: Warm, dry, erythema and warmth of bilateral lower extremities from ankles to mid calf. [] Back: No tenderness, no CVA tenderness. [] Extremities: No tenderness, no cyanosis, no clubbing, ROM intact, no edema. [] Neurologic: Alert and oriented X 3, normal motor function, normal sensory function, no focal deficits noted. [] Psychologic: Affect normal, judgement normal, mood normal. [] Current Patient Data Vital Signs Vital Signs Date Time Temp Pulse Resp B/P (MAP) Pulse Ox O2 Delivery O2 Flow Rate FiO2 05/28/17 00:46 98.0 99 24 125/66 (85) 98 Room Air 98.0 EKG EKG [] Radiology/Procedures Radiology/Procedures [] Impressions: Bilateral lower show any cellulitis Chronic pain Course & Med Decision Making Course & Med Decision Making Pertinent Labs and Imaging studies reviewed. (See chart for details) She was seen and evaluated by myself. She is on chronic narcotics provided by her primary care physician. She states she takes 1 mg of short-acting oxycodone and 60 mg OxyContin long-acting. She also complains of bilateral lower show many pain and erythema. She has cellulitis of her bilateral legs and will give her clindamycin 300 mg every 8 hours for 7 days. I also gave her one dose of her short-acting oxycodone. She's being discharged in stable condition this time to follow back up with her primary care physician. Dragon Disclaimer Dragon Disclaimer This electronic medical record was generated, in whole or in part, using a voice recognition dictation system. Departure Departure Impression: Primary Impression: Cellulitis Disposition: HOME, SELF-CARE Condition: STABLE Referrals: JOSE MELO MD (PCP) Patient Instructions: Cellulitis, [id number] Additional Instructions: You have an infection of your legs and when he taken a Vicodin at least the next 7 days. The name of medicines called clindamycin, please take it as instructed. You will need to follow back up with her primary care physician within a week to have them reassess her legs and also to have them refill your short-acting oxycodone that you stated you are out of. Return to the ER if you have severe pain, uncontrolled nausea vomiting, high fevers, or other concerns. Scripts Clindamycin Hcl (CLINDAMYCIN HCL) 300 Mg Capsule 1 CAP PO TID, #21 CAP Prov: LAWRENCE BENNETT MD 05/28/17 LAWRENCE BENNETT MD May 28, 2017 00:54
[2017-05-28] MEDS ORDERED: CLIN300C8 PO (01:30)
[2017-05-28] MEDS ORDERED: oxyCODONE IR 5 MG TABLET PO ONE (02:00)
[2017-05-28] MEDS ORDERED: CLINDAMYCIN HCL 150 MG CAPSULE. PO ONE (02:00)
== END 2017-05-28 01:49 | disposition home or self-care (01) ==
LOC: ER 00:32
DX: L03.116 Cellulitis of left lower limb (principal); L03.115 Cellulitis of right lower limb; G89.29 Other chronic pain; Z90.49 Acquired absence of other specified parts of digestive tract; Z90.710 Acquired absence of both cervix and uterus; Z79.891 Long term (current) use of opiate analgesic; Z88.0 Allergy status to penicillin; Z88.6 Allergy status to analgesic agent; Z88.5 Allergy status to narcotic agent
CPT/HCPCS: 99283

== ENCOUNTER 2017-10-18 23:48 | Emergency (ER) | payer OTHER ==
[2017-10-19 02:27] LABS: ADD MAN DIFF? NO
[2017-10-19] MEDS: CLINDAMYCIN HCL 150 MG CAPSULE. PO (02:30)
[2017-10-19 02:31] LABS: BASO % 1 % (0-3); EOS # 0.2 x10^3/uL (0.0-0.7); EOS % 3 % (0-3); HEMATOCRIT 32.8 % (36.0-47.0); HEMOGLOBIN 11.2 g/dL (12.0-15.5); LYMPH # 1.4 x10^3/uL (1.0-4.8); LYMPH % 27 % (24-48); MEAN CORPUSCULAR HEMOGLOBIN 30 pg (25-35); MEAN CORPUSCULAR HGB CONC 34 g/dL (31-37); MEAN CORPUSCULAR VOLUME 89 fL (79-100); MONO # 0.5 x10^3/uL (0.0-1.1); MONO % 9 % (0-9); NEUT # 3.3 x10^3uL (1.8-7.7); NEUT % 60 % (31-73); PLATELET COUNT 219 x10^3/uL (140-400); RED CELL DISTRIBUTION WIDTH 14.3 % (11.5-14.5); WHITE BLOOD COUNT 5.4 x10^3/uL (4.0-11.0)
[2017-10-19 02:38] LABS: ANION GAP 9 (6-14); BLOOD UREA NITROGEN 20 mg/dL (7-20); BUN/CREATININE RATIO 25 (6-20); CALCIUM 8.5 mg/dL (8.5-10.1); CARBON DIOXIDE 29 mmol/L (21-32); CHLORIDE 105 mmol/L (98-107); CREATININE 0.8 mg/dL (0.6-1.0); GLUCOSE 119 mg/dL (70-99); POTASSIUM 3.4 mmol/L (3.5-5.1); SODIUM 143 mmol/L (136-145)
[2017-10-19 02:44] LABS: ALBUMIN 3.2 g/dL (3.4-5.0); ALBUMIN/GLOBULIN RATIO 0.9 (1.0-1.7); ALK PHOS 87 U/L (46-116); ALT (SGPT) 21 U/L (14-59); AST (SGOT) 16 U/L (15-37); TOTAL BILIRUBIN 0.2 mg/dL (0.2-1.0); TOTAL PROTEIN 6.8 g/dL (6.4-8.2)
[2017-10-19] MEDS: oxyCODONE IR 5 MG TABLET PO (03:39)
== END 2017-10-19 04:52 | disposition home or self-care (01) ==
LOC: ER 23:48
DX: L03.116 Cellulitis of left lower limb (principal); L03.115 Cellulitis of right lower limb; Z88.0 Allergy status to penicillin; Z88.5 Allergy status to narcotic agent; Z88.6 Allergy status to analgesic agent
CPT/HCPCS: 36415; 80053; 85025; 99284